=== PATIENT | female | born 1955 | race Caucasian/White ===

== ENCOUNTER → 2017-02-06 | Outpatient (CLI) | payer MEDICARE ==
[~2017-02-06] MED LIST: DULO60CA6 PO; MONT10TA9 PO; MYCO500T3 PO; POTA8TAB PO; PROAIR HFA8.5 GM IH; QUIN324C PO; VALS1TAB33 PO; [UNRECOGNIZED DRUG - CODE] PO
--- NOTE | 2017-02-06 15:35 | RAD ---
EXAM: Bilateral lower extremity venous Doppler. HISTORY: Bilateral lower extremity pain/swelling. COMPARISON: None. FINDINGS: Grayscale and Doppler analysis of the both lower extremity deep venous systems was performed with graded compression and augmentation. The common femoral, greater saphenous, superficial femoral, popliteal and calf veins were assessed. There is no evidence of deep venous thrombosis. IMPRESSION: 1. No evidence of deep venous thrombosis.
== END | disposition home or self-care (01) ==
LOC: US 13:02
PROVIDERS: ATTEND Family Medicine
DX: R60.0 Localized edema (principal)
CPT/HCPCS: 93970

== ENCOUNTER → 2018-10-10 | Outpatient (CLI) | payer MEDICARE ==
[~2018-10-10] MED LIST changes: +ALBU2.5V8 IH; -PROAIR HFA8.5 GM IH
--- NOTE | 2018-10-10 16:40 | KCIC ---
Examination: CT chest with contrast HISTORY: History of lung cancer COMPARISON: 01/01/2016 TECHNIQUE: Axial CT images of chest were performed without contrast. Coronal and sagittal reformats are performed. Exposure: One or more of the following individualized dose reduction techniques were utilized for this examination: 1. Automated exposure control 2. Adjustment of the mA and/or kV according to patient size 3. Use of iterative reconstruction technique FINDINGS: The central airways are patent. Mild cardiomegaly. Coronary artery calcifications. Small subcentimeter mediastinal lymph nodes identified. There are new foci of consolidation identified in the right middle lobe of the lung and in the left lung laterally. Small air bronchograms likely pneumonia or atelectasis. Calcified granuloma identified in the right lower lobe lung similar to prior exam. Postsurgical changes identified in the left lung. Mild lung emphysematous changes. The visualized noncontrasted liver, spleen, adrenals grossly appears unremarkable. Moderate degenerative changes thoracic spine. Mild soft tissue stranding identified about the bilateral breasts, nonspecific. IMPRESSION: 1. New foci of focal consolidations identified in the right middle lobe and left lateral lung likely foci of pneumonia or atelectasis. Neoplasm is not completely excluded. Follow-up to resolution. 2. Soft tissue stranding identified about the bilateral breasts. Nonspecific. Recommend mammography for further evaluation. Electronically signed by: Abilio Moreno MD (10/10/2018 4:37 PM) [place] [id number]
== END | disposition home or self-care (01) ==
LOC: KCIC CT 12:53
PROVIDERS: ATTEND Family Medicine
DX: Z08 Encounter for follow-up examination after completed treatment for malignant neoplasm (principal); J43.9 Emphysema, unspecified; J84.10 Pulmonary fibrosis, unspecified; I25.10 Atherosclerotic heart disease of native coronary artery without angina pectoris; I51.7 Cardiomegaly; M47.894 Other spondylosis, thoracic region; I10 Essential (primary) hypertension; R59.0 Localized enlarged lymph nodes; Z98.890 Other specified postprocedural states; Z85.118 Personal history of other malignant neoplasm of bronchus and lung
CPT/HCPCS: 71250

== ENCOUNTER → 2019-04-17 | Outpatient (CLI) | payer MEDICARE ==
[~2019-04-17] MED LIST changes: +MONT10TA49 PO; -MONT10TA9 PO
--- NOTE | 2019-04-17 11:07 | KCIC ---
Ultrasound venous Doppler INDICATION:Left lower extremity swelling. TECHNIQUE: Grayscale, color Doppler and spectral waveform ultrasound images of the left lower extremity deep veins obtained. COMPARISON: None FINDINGS: The interrogated deep veins are compressible and demonstrate evidence of blood flow with normal respiratory variation and response to augmentation. Hypoechoic lesion in the popliteal fossa measuring 2.5 x 0.4 x 0.1 cm without vascularity most likely a Vazquez's cyst. IMPRESSION: No sonographic evidence of acute DVT of the left lower extremity deep veins. Electronically signed by: Marcelino Magana DO (04/17/2019 11:04 AM) [facility]
== END | disposition home or self-care (01) ==
LOC: KCIC US 08:55
PROVIDERS: ATTEND Internal Medicine Rheumatology
DX: M25.862 Other specified joint disorders, left knee (principal); M79.89 Other specified soft tissue disorders
CPT/HCPCS: 93971

== ENCOUNTER 2019-12-14 09:33 | Emergency (ER) | payer MEDICARE ==
[~2019-12-14] VITALS: Ht 162.6 cm; Wt 63.0 kg
[~2019-12-14 09:33] MED LIST changes: +AMLO10TA8 PO; +AMLO5TAB10 PO; +ASPI-630 PO; +ERGO400T2 PO; +LOSA1TAB22 PO; +MULT-114 PO; +MYCO200S2 PEG; +OMEG-152 PO; +POTA10TA12 PO; +VITA1TAB19 PO
--- NOTE | 2019-12-14 10:47 | RAD ---
EXAM: PORTABLE CHEST 1V INDICATION: One week of tracheostomy problems with cough and irritation.. TECHNIQUE: Single view COMPARISON: Chest x-ray 09/12/2019 FINDINGS: Patient has a tracheostomy tube still in place. Positioning is well centered along the trachea with the tip terminating on this projection approximately 3.6 cm above the vivi. There are surgical changes from previous left lung surgery. The heart size is normal. The great vessels appear unremarkable. There is no hilar or mediastinal mass. The lungs are clear. There is no pleural effusion or pneumothorax. There are no significant osseous abnormalities. IMPRESSION: Stable postoperative changes in the left lung and tracheostomy tube positioning with no acute superimposed cardiopulmonary process otherwise shown by plain film. Electronically signed by: Concetta Nielsen MD (12/14/2019 10:43 AM) [id number]
[2019-12-14 11:00] VITALS: BP 132/79
--- NOTE | 2019-12-14 11:02 | PHYS DOC ---
Past Medical History Past Medical History: Asthma Past Surgical History: Other Additional Past Surgical Histo: tracheostomy Smoking Status: Current Every Day Smoker Alcohol Use: Rarely Drug Use: None General Adult EDM: Chief Complaint: OTHER COMPLAINTS HPI: HPI: Patient is a 64 year old female with history of asthma and tracheostomy in place who presents with complaining of missing piece of tracheostomy. Patient states for the last 5 days she missing 1 part of her tracheostomy and thinks is dislodged in her trachea because when she or her home health tried to suction the tracheostomy and trachea, the suction tube does not advance like before. Patient denies shortness of breath, cough, problem with her speech, fever and chills, chest pain. Review of Systems: Review of Systems: Constitutional: Denies fever or chills. [] Eyes: Denies change in visual acuity. [] HENT: Denies nasal congestion or sore throat. [] Respiratory: Denies cough or shortness of breath. [] Cardiovascular: Denies chest pain or edema. [] GI: Denies abdominal pain, nausea, vomiting, bloody stools or diarrhea. [] : Denies dysuria. [] Musculoskeletal: Denies back pain or joint pain. [] Integument: Denies rash. [] Neurologic: Denies headache, focal weakness or sensory changes. [] Endocrine: Denies polyuria or polydipsia. [] Lymphatic: Denies swollen glands. [] Psychiatric: Denies depression or anxiety. [] Heart Score: Risk Factors: Risk Factors: DM, Current or recent (<one month) smoker, HTN, HLP, family history of CAD, obesity. Risk Scores: Score 0 - 3: 2.5% MACE over next 6 weeks - Discharge Home Score 4 - 6: 20.3% MACE over next 6 weeks - Admit for Clinical Observation Score 7 - 10: 72.7% MACE over next 6 weeks - Early Invasive Strategies Allergies: Allergies: Allergies Coded Allergies Type Severity Reaction Last Updated Verified ephedrine Allergy Intermediate 07/31/19 Yes methylprednisolone Allergy Intermediate 09/23/14 Yes phenobarbital Allergy Intermediate 07/31/19 Yes theophylline Allergy Intermediate 09/23/14 Yes Physical Exam: PE: Constitutional: Well developed, well nourished, no acute distress, non-toxic appearance. [] HENT: Normocephalic, atraumatic. Eyes: PERRLA, EOMI, conjunctiva normal, no discharge. [] Neck: Uncuff tracheostomy tube in place without missing part, normal range of motion, no tenderness, supple, no stridor. [] Cardiovascular:Heart rate regular rhythm, no murmur [] Lungs & Thorax: Bilateral breath sounds clear to auscultation [] Extremities: No tenderness, no cyanosis, no clubbing, ROM intact, no edema. [] Neurologic: Alert and oriented X 3, no focal deficits noted. [] Psychologic: Affect normal, judgement normal, mood normal. [] Current Patient Data: Vital Signs: Vital Signs Date Time Temp Pulse Resp B/P (MAP) Pulse Ox O2 Delivery O2 Flow Rate FiO2 12/14/19 10:05 98.3 94 18 195/86 (122) 98 Room Air 98.3 EKG: EKG: [] Radiology/Procedures: Radiology/Procedures: [] Course & Med Decision Making: Course & Med Decision Making Pertinent Imaging studies reviewed. (See chart for details) Evaluation of patient in ER showed 64-year-old male patient with tracheostomy tube in place that was concern for missing part of her tracheostomy and dislodging her trachea. Patient had normal physical exam. Respiratory therapist medical administrative technician suctioned the tracheostomy tube with removing thick mucus without problem with advancing the suction tube. Patient informed about not missing part of her tracheostomy and educated about suctioning the tube. Educational resources was provided for patient. Patient was advised to follow- up with her physician. I've spoken with the patient and/or caregivers. I've explained the patient's condition, diagnosis and treatment plan based on information available to me at this time. I've answered the patient's and/or caregivers questions and addressed any concerns. The patient and/or caregivers have a good understanding the patient's diagnosis, condition and treatment plan as can be expected at this point. Vital signs have been stabilized. The patient's condition is stable for discharge from the emergency department. The patient will pursue further outpatient evaluation with her primary care provider or other designated consulting physician as outlined in the discharge instructions. Patient and/or caregivers are agreeable to this plan of care and follow-up instructions have been explained in detail. The patient and/or caregivers have received these instructions in written format and expressed understanding of these discharge instructions. The patient and her caregivers are aware that if any significant change in condition or worsening of symptoms should prompt him to immediately return to this of the closest emergency department. If an emergent department is not readily available I would encourage him to call 911. Joana Disclaimer: Joana Disclaimer: This electronic medical record was generated, in whole or in part, using a voice recognition dictation system. Departure Departure Impression: Primary Impression: Tracheostomy complication Qualified Codes: J95.00 - Unspecified tracheostomy complication Disposition: HOME, SELF-CARE (At 1101) Condition: IMPROVED Referrals: DORIS MESA MD (PCP) Patient Instructions: Care of a Tracheostomy Tube, [id number], How to Change a Cuffless Tracheostomy Tube, How to Suction a Tracheostomy, Stoma Care and Tracheostomy Tie Change Additional Instructions: Continue current treatment Follow-up with your primary care physician in 3-5 days Return to ER if not getting better Thank you for visiting [facility]. We appreciate you trusting us with your care. If any additional problems come up don't hesitate to return to visit us. Please follow up with your primary care provider so they can plan additional care if needed and know about the problem that you had. If symptoms worsen come back to the Emergency Department. Any concerning symptoms that start such as chest pain, shortness of air, weakness or numbness on one side of the body, running high fevers or any other concerning symptoms return to the ER. RAQUEL WIN MD Dec 14, 2019 11:02
== END 2019-12-14 11:20 | disposition home or self-care (01) ==
LOC: ER 09:33
DX: J95.03 Malfunction of tracheostomy stoma (principal); J45.909 Unspecified asthma, uncomplicated; F17.200 Nicotine dependence, unspecified, uncomplicated; Z88.8 Allergy status to other drugs, medicaments and biological substances; Y83.8 Other surgical procedures as the cause of abnormal reaction of the patient, or of later complication, without mention of misadventure at the time of the procedure
CPT/HCPCS: 71045; 99284

== ENCOUNTER → 2020-07-03 | Outpatient (CLI) | payer MEDICARE, OTHER ==
[~2020-07-03] MED LIST changes: +AMLO-186 PO; +AMLO-187 PO; -AMLO10TA8 PO; -AMLO5TAB10 PO
--- NOTE | 2020-07-03 13:19 | KCIC ---
PA and lateral chest x-ray compared to portable chest radiograph dated 12/14/2019 for cough, shortness of air, asthma, history of left lobectomy. FINDINGS: Postsurgical changes are seen in the left with mild volume loss. Lungs overall are hyperinflated. No definite pneumonic infiltrates are seen. Calcified granuloma is seen posteriorly on the lateral projection. No soft tissue or osseous abnormalities. IMPRESSION: 1. No acute cardiopulmonary abnormality. 2. Sequelae of prior left lobectomy. Electronically signed by: Sreekanth Lozano MD (07/03/2020 1:17 PM) [id number]
== END ==
LOC: KCIC 12:48
PROVIDERS: ATTEND Family Medicine
DX: R05 Cough (principal); R06.02 Shortness of breath; Z85.118 Personal history of other malignant neoplasm of bronchus and lung; Z90.2 Acquired absence of lung [part of]
CPT/HCPCS: 71046

== ENCOUNTER → 2020-09-16 | Outpatient (CLI) | payer MEDICARE ==
--- NOTE | 2020-09-16 12:07 | KCIC ---
EXAM: Chest, single view. HISTORY: Bronchitis. COMPARISON: 07/03/2020 FINDINGS: A frontal view of the chest is obtained. There is stable left suprahilar scarring and surgi karma clips with rib defect due to prior partial lung resection. There is no infiltrate, pleural effusi on or pneumothorax. The heart is normal in size. IMPRESSION: No acute pulmonary finding. Electronically signed by: Mamie De Oliveira MD (09/16/2020 12:04 PM) [id number]
== END ==
LOC: KCIC 09:45
PROVIDERS: ATTEND Family Medicine
DX: J40 Bronchitis, not specified as acute or chronic (principal)
CPT/HCPCS: 71046

== ENCOUNTER → 2021-12-03 | Outpatient (CLI) | payer MEDICARE ==
[~2021-12-03] MED LIST changes: -DULO60CA6 PO; +DULO60CA7 PO; -POTA8TAB PO; +POTA8TAB57 PO
--- NOTE | 2021-12-03 12:40 | KCIC ---
XR CHEST 2V History: Reason: Chronic cough, has been on antibiotics. / Spl. Instructions: / History: Comparison: September 16, 2020 Findings: Hyperinflation. No consolidation or pleural effusion. Normal heart size. No pneumothorax. Postoperati ve changes left lung. Posterior calcified pulmonary nodule, likely prior granulomas disease. Impression: 1. Hyperflexion. No new consolidation. Electronically signed by: Brown Snider DO (12/03/2021 12:37 PM) [id number]
== END ==
LOC: KCIC 10:10
PROVIDERS: ATTEND Family Medicine
DX: J98.11 Atelectasis (principal); R91.1 Solitary pulmonary nodule; Z98.890 Other specified postprocedural states
CPT/HCPCS: 71046

== ENCOUNTER → 2022-01-20 | Outpatient (CLI) | payer MEDICARE ==
--- NOTE | 2022-01-20 14:21 | KCIC ---
INDICATION: Reason: Memory loss. / Spl. Instructions: / History: Worsening short term memory loss, h x. hypertension. COMPARISON: July 2019 TECHNIQUE: Axial CT images obtained through the head without intravenous contrast. One or more of the following individualized dose reduction techniques were utilized for this examinat ion: 1. Automated exposure control; 2. Adjustment of the mA and/or kV according to patient size; 3 . Use of iterative reconstruction technique. FINDINGS: No intracranial hemorrhage. No significant midline shift. Ventricles and sulci are globally prominent. Scattered foci of low attenuation within the white matter. Patchy osseous demineralization. IMPRESSION: * No acute intracranial hemorrhage. * Scattered regions of low attenuation within the white matter. Non-specific in nature but a common finding and frequently secondary to small vessel ischemic disease. Electronically signed by: Salvatore Spicer MD (01/20/2022 2:19 PM) [id number]
== END ==
LOC: KCIC CT 13:01
PROVIDERS: ATTEND Family Medicine
DX: R90.82 White matter disease, unspecified (principal); R41.3 Other amnesia
CPT/HCPCS: 70450